=== PATIENT | male | born 1975 | race Caucasian/White ===

== ENCOUNTER 2017-02-27 11:17 | Emergency (ER) | payer BC, OTHER ==
[2017-02-27] MEDS ORDERED: ASPIRIN 81 MG TAB.CHEW PO ONE (11:27)
[2017-02-27] MEDS ORDERED: ASPIRIN 81 MG TAB.CHEW ONE (11:29)
[2017-02-27] MEDS ORDERED: SUCRALFATE 1 G/10 ML UDC PO ONE (11:45)
[2017-02-27] MEDS ORDERED: MAG HYDROX/ALUMINUM HYD/SIMETH 30 ML UDC PO ONE (11:45)
[2017-02-27] MEDS ORDERED: LIDOCAINE HCL 20 ML UDC PO ONE (11:45)
[2017-02-27 11:48] LABS: Hemoglobin 15.4 gm/dL (13.5-18.0); Mean Cell Volume 87.6 fl (78-100); Mean Corpuscular Hemoglobin 30.7 pg (27-31); Mean Platelet Volume 9.8 fl (6.0-9.5); Neutrophil # 2.3 K/mm3 (1.3-6.0); Neutrophil % 53.5 % (42-75.0); Platelet Count 240 K/mm3 (150-450); Red Blood Count 5.02 M/mm3 (4.7-6.0); Red Cell Distribution Width 11.9 % (11.5-14.0); White Blood Count 4.3 K/mm3 (4.0-10.5)
[2017-02-27 12:01] LABS: Prothrombin Time (Patient) 10.3 Seconds (9.4-11.4)
[2017-02-27 12:02] LABS: INR 0.99 INR (0.90-1.10)
[2017-02-27 12:03] LABS: Partial Thrombolplastin Time 29.2 Seconds (24-32)
[2017-02-27 12:23] LABS: ALT 63 U/L (19-67); AST 30 U/L (0-48); Albumin * 4.4 gm/dl (3.4-5.0); Alkaline Phosphatase * 60 U/L (50-170); Anion Gap 14.4 mmol/L (6.8-13.8); BUN/Creatinine Ratio 12.6 (9.0-21.6); Bilirubin, Total 0.6 mg/dL (0.0-1.1); Blood Urea Nitrogen 13 mg/dL (6-23); Ca. Corrected For Albumin 8.6 mg/dL (8.4-10.2); Calcium * 9.2 mg/dL (7.9-10.9); Carbon Dioxide 26.7 mmol/L (24-32.6); Chloride 105 mmol/L (97-106); Glucose * 113 mg/dL (70-110); Potassium 4.1 mmol/L (3.4-4.6); Sodium 142 mmol/L (132-142); Total Protein 8.2 gm/dL (6.2-8.2); Troponin I Less than 0.017 ng/ml (0.00-0.10)
--- NOTE | 2017-02-27 14:14 | ERNOTE ---
Chest Pain/Cardiac HPI Date of Service: 02/27/17 Chief Complaint: Chest Pain Time Seen by Provider: 02/27/17 11:32 Source: patient Exam Limitations: no limitations Immunizations: IMMUNIZATION HX Immunizations Up to Date Yes History of Influenza Vaccine No Hx Pneumococcal Vaccination No Allergies/Adverse Reactions: Allergies No Known Allergies Allergy (Verified 02/27/17 11:27) Home Medications: HOME MEDICATIONS NK [No Home Medication] 02/27/17 [Last Taken Unknown] Narrative: Patient presents to the ED for central chest pain. He has had this constantly since last night around dinner time. It has not gone away since beginning. It is a squeezing pain and is pleuritic in nature. He relates that he has never had this before. It is located at his sternum. He states the pain is most noticed with deep breath. No calf pain or leg swelling. No SOB. No fever or recent illness. He has not seen anyone else for this. no Hx PE in family. No early onset CAD noted. No PE risks can be identified. No exertional pain. Timing: constant Severity/Quality: mild Location: central Chest Pain Radiation: no radiation Activities at Onset: none Modifying Factors - Improves: Present: nothing Modifying Factors - Worsens: Present: breathing Associated Symptoms: Present: denies symptoms. Absent: syncope, cough, fever/ chills, vomiting, abdominal pain, weakness Prior Chest Pain/Cardiac Workup: Reports: prior chest pain Prior Treatment: Denies: recently seen Review of Systems - Review of Systems Constitutional: Absent: fever Respiratory: Present: See HPI Cardiology: Present: See HPI Gastrointestinal/Abdominal: Present: no symptoms reported Genitourinary: Absent: dysuria Musculoskeletal: Present: no symptoms reported Skin: Absent: rash Neurological: Absent: weakness All Other Systems: All systems neg except as marked - Patient's Past Medical History Patient History - Medical: No pertinent hx Patient History - Cardiac/Respiratory: No pertinent hx Patient History - Cancer: No Hx of Cancer Patient History - Surgical Procedures: No surgical history Patient History - Other: None - Social History Living Situations: home Abuse History: No History of abuse Psych History: No pertinent hx Smoking Status: Never smoker Alcohol Use: occasionally Drug Use: none - Immunizations Immunizations Up to Date: Yes Hx Pneumococcal Vaccination: No History of Influenza Vaccine: No Physical Exam - Physical Exam General Appearance: Present: alert, no apparent distress Eye Exam: Normal inspection: bilateral, PERRL: bilateral Ears, Nose, Throat: Present: normal ENT inspection Neck: Present: normal inspection Respiratory: Present: no respiratory distress, normal breath sounds, no accessory muscle use, lungs clear Cardiovascular/Chest: Present: regular rate, rhythm, normal peripheral pulses Gastrointestinal/Abdominal: Present: normal bowel sounds, nontender, nondistended, soft Back Exam: Present: normal range of motion Extremity Exam: Present: normal inspection, non-tender, normal range of motion, no edema, other - no findings of DVT Neurological Exam: Present: alert, normal mood/affect, no motor/sensory deficits Skin Exam: Present: normal color, warm/dry. Absent: skin rash ED Progress - Results and Orders Patient's Lab Results:: I have reviewed the patient's lab results. - Vital Signs Patient's Vital Signs:: I have reviewed the patient's vital signs. Vital Signs: Vital Signs 02/27/17 02/27/17 02/27/17 11:22 11:30 11:32 Temperature 36.9 C Pulse Rate 82 75 99 Respiratory 16 16 Rate Blood Pressure 143/74 143/74 O2 Sat by Pulse 96 96 Oximetry 02/27/17 02/27/17 02/27/17 11:51 12:15 12:45 Temperature Pulse Rate 78 78 69 Respiratory 15 16 13 Rate Blood Pressure 118/88 115/76 119/83 O2 Sat by Pulse 94 95 95 Oximetry 02/27/17 02/27/17 13:16 13:47 Temperature Pulse Rate 74 69 Respiratory 16 17 Rate Blood Pressure 119/81 125/82 O2 Sat by Pulse 94 93 Oximetry - EKG EKG: NSR EKG read: Interp. by me EKG Comments: NSR rate 76. Non-specific changes, no STEMI. Minimal change from 10/11/03 - X-Ray X-Ray #1 X-Ray: chest Interpretation: Reviewed by me X-ray Comments: X-rays not being read in [facility] [place] by radiology. NAPP by my interp. Pt aware that over read will be done by tomrrow . - Progress/Reassessment Chief Complaint: Chest Pain Progress Note-Subjective: 02/27/17 14:08 Constant pain well over 12 hours, atypical, pleuritic. Nothign at this point to suggest ACS. Nothing clinically to suggest PE or aortic dissection with d- dimer in normal range this is reassuring. I offered the patient further testing and observation but he declines this. He understands risks and benefits but wishes to see his PCP wednesday to discuss further testing and possible stress testing. I disucssed warning signs and reasons to return as well as the need for close f/u. Departure - Departure Clinical Impression: Atypical chest pain Disposition: Home self-care Condition: Stable Additional Instructions: Rest. Fluids. See your doctor wednesday for a follow-up and to discuss further testing. Return here is you change your mind about any of the additional testing we discussed, develop increased pain, trouble breathing, ever or if your condition worsens or changes in any way. Referrals: Arline Sanchez DO [Primary Care Provider] -
[2017-02-27 14:16] VITALS: BP 122/81
== END 2017-02-27 14:20 | disposition home or self-care (01) ==
LOC: ER 11:17
DX: R07.89 Other chest pain (principal)